=== PATIENT | male | born 1975 | race Caucasian/White ===

== ENCOUNTER 2017-02-20 16:53 | Emergency (ER) | payer OTHER ==
[~2017-02-20] VITALS: Ht 175.3 cm; Wt 94.8 kg
[~2017-02-20 16:53] MED LIST: CELEBREX 200MG200 MG PO; KLONOPIN 0.5MG0.5 MG PO; TRAMADOL 50MG T50 MG PO; VICODIN 5/500 T1 TAB PO; VOLTAREN75 MG PO; XANAX 0.5MG TA0.5 MG PO
[2017-02-20] MEDS ORDERED: IBUPROFEN800 MG PO (17:05)
--- NOTE | 2017-02-20 17:09 | Emergency Room Report ---
History of Present Illness Time Seen by [id number] Presenting Problem in Triage Pt arrived:Walked Presenting Problem:2 DAYS LIGHT HEADED AND DIZZY, HEAD TINGLING IN THE BACK, PRESSURE LIKE WEARING A TIGHT HAT. SEEN AT THE CT YESTERDAY FOR NECK PAIN. SURGERY FOR COLON CA IN 12/[address] 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 N Clinical Suspician of Infection? N Mental Status: 1 - Regular (Normal Baseline) Sepsis Risk:Low Sepsis Risk Have you (or family members/close friends) recently traveled outside the [place]? N If Yes, where/when: Have you had exposure to infectious disease within the past month? TB? Other? Specify: Comment The patient has several complaints. He says that he has had an ache in the back of his neck and his upper back to the LEFT shoulder area for about 2 weeks that feels like the soreness she gets after carrying something. He says for the past 2-3 days he has had a sensation like a tight band or hat around his head and a tingling on the top of his scalp. He says his vision has been blurry off and on. He feels like he is forgetting things. His says he is a little more hesitant in his speech than he normally is. She thought it was a little slurry this morning, but not now. He denies any numbness or weakness of the extremities. He was seen by his primary care physician at the [facility] yesterday. He had neck and back x-rays for his pain. He says he did not have any other tests. He says that they thought his other symptoms were related to his pain. He is supposed to follow-up and have a stress test and an echocardiogram next month. He was not started on any medicines. ALLERGIES Coded Allergies: No Known Allergies (02/20/17) Home Medications Reported Medications Ibuprofen (Ibuprofen 800MG) 800 MG PO TID PRN History Medical History General CAD? No Angina: No DC: No Hypertension? No Hyperlipidemia? No CHF? No COPD? No Asthma? No Anemia? No Hernia? No Thyroid Problems? No Hypothyroidism? No CVA? No Seizures? No Diabetes? No End Stage Renal Disease? No UTI? No Stones? No GB Disease: No Nephritic Syndrome? No Asplenia? No Hepatitis? No Sickle Cell Disease? No Arthritis? No Cataracts? No Glaucoma? No MRSA? No TB? No Cancer? Yes Site: COLON More? No Immunization Hx DT/Tetanus 1-4 Years Ago Surgical Hx Previous Surgery?Y COLON CA SURGERY 12/30 Social History Smoking Hx Smoker: Never Smoker Tobacco: No Alcohol Alcohol: No Review of Systems All Other Systems Reviewed and Negative Eyes blurred vision Respiratory denies shortness of breath Cardiovascular denies chest pain Psychiatric/Neurological headache, tingling, denies weakness Physical Exam Vital Signs Vital Signs Date Time Temp Pulse Resp B/P Pulse O2 O2 Flow FiO2 Ox Delivery Rate 02/20 1853 76 20 146/73 98 02/20 1834 75 20 142/79 98 02/20 1656 83 20 181/98 98 General Appearance no apparent distress Eye Exam - bilateral eye normal exam, bilateral eye PERRL, bilateral eye EOMI Ear, Nose, Throat hearing grossly normal, normal ENT inspection, tympanic membranes normal Neck normal inspection, non-tender, supple, full range of motion, negative Spurling test, no bruits Respiratory Status Yes: trachea midline, chest symmetrical. No: respiratory distress. Lung Sounds bilateral: normal breath sounds, lungs clear. 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 No Results/Orders Laboratory Tests 02/20/171714: Creatine Kinase 77, CK-MB (CK-2) Rel Index 1.0, CK and CKMB Interp 0.8, Troponin I 0.02 02/20/171714: Sodium 139, Potassium 3.5, Chloride 104, Carbon Dioxide 25, BUN 20 H, Creatinine 1.0, Estimated Creat Clear 128, Estimated GFR (MDRD) 82, Glucose 141 H, Calcium 9.6, Total Bilirubin 0.4, AST 19, ALT 48, Alkaline Phosphatase 102, Total Protein 8.0, Albumin 4.1, Globulin 3.9 H, Albumin/Globulin Ratio 1.1, WBC 7.5, RBC 5.49, Hgb 16.6, Hct 49.0, MCV 89.3, RDW 13.4, Plt Count 226, MPV 7.9, Gran % 67.9, Gran # 5.1, Lymphocytes % 24.5, Monocytes % 6.0, Eosinophils % 1.3, Basophils % 0.3, Lymphocytes # 1.8, Monocytes # 0.4, Eosinophils # 0.1, Basophils # 0.0, PUBS MCHC 33.9, MCH 30.3 Current Medication Orders Sig/Tirso Start time Last Medication Dose Route Stop Time Status Admin Sodium Chloride 10 ML PRN PRN 02/20 1715 DCD IV 02/21 1707 Orders Procedure Date/time Status DIET-NOTHING BY MOUTH 02/21 B Active CARDIAC ENZYMES 02/20 1711 Complete ELECTROCARDIOGRAM REQUEST 02/[address] HEAD REQ 02/21 1708 Complete IV SALINE LOCK 02/21 1708 Active CBC WITH AUTO DIFF 02/21 1708 Complete CHEM 12 PROFILE 02/[address] HEAD W/O CONTRAST 02/20 UNK Active CM/EKG CM/EKG Comments EKG interpreted by Albaro Eng MD: Rhythm: sinus Rate: 78 [place]: normal Ectopy: none Conduction: normal ST Segment Changes: none T Wave Changes: none Q Waves: none No evidence of acute ischemia or injury XRAY/CT/US XRAY/CT/US CT head Comment CT scan interpreted by ad radiologist. Faxed report received and reviewed: Normal head/brain CT Progress - 6:42 PM: Advised patient if need to follow-up for further workup of symptoms with his primary care physician. I do not feel that he needs to be admitted. But should follow up for carotid ultrasounds or similar workup. Advised to follow-up for his blood pressure, which is currently 141/71, and blood sugar of 147. Departure Departure Disposition DC Home or Self Care(routine) Clinical Impression Primary Impression: Paresthesias Secondary Impressions: Blood pressure elevated without history of HTN, Dizziness , Hyperglycemia Condition STABLE Patient Instructions DI for Dizziness-Nonvertigo, DI for High Blood Pressure, DI for Hyperglycemia -- Adult, DI for Numbness/tingling Additional Instructions Call your primary care physician tomorrow to arrange follow-up for your symptoms. Your blood sugar was 141, follow-up with your primary care physician. Additional instructions regarding BLOOD PRESSURE: One of your blood pressure readings was higher than normal (greater than 120/80) today. Please contact your primary care physician for further evaluation of your blood pressure within 2 wks. ED Critical Care Critical Care No at 2009
--- OUTSIDE RECORDS SUMMARY | 2017-02-20 17:16 | External Medical Summary Rpt | CCD ---
Author Author MAGO Address Unknown Phone Purpose Continuity of Care Document - through 2016
--- OUTSIDE RECORDS SUMMARY | 2017-02-20 17:16 | External Medical Summary Rpt | CCD ---
Author Author [employer] Organization [employer] Address Unknown Phone Unavailable Purpose Continuity of Care Document - through 2016
--- OUTSIDE RECORDS SUMMARY | 2017-02-20 17:17 | External Medical Summary Rpt | CCD ---
Demographics Preferred Language Faroese Marital Status Unknown Bahai Affiliation Unknown Race Unknown Ethnic Group Unknown Author Author , MAGO FORTE Address Unknown Phone Immunization Unable to retrieve immunization data due to connection failure with Immunization Registry. Please try again later.
--- OUTSIDE RECORDS SUMMARY | 2017-02-20 17:17 | External Medical Summary Rpt | CCD ---
Demographics Preferred Language Mohawk Marital Status Unknown Scientology Affiliation Unknown Race Unknown Ethnic Group Unknown Author Author , MAGO FORTE Address Unknown Phone Immunization Unable to retrieve immunization data due to connection failure with Immunization Registry. Please try again later.
[2017-02-20 17:23] LABS: HEMOGLOBIN 16.6 g/dL (14.1-18.0); LYMPH # 1.8 K/mm3 (0.7-4.5); LYMPH % 24.5 % (10-50)
[2017-02-20 18:53] VITALS: BP 146/73
--- NOTE | 2017-02-20 23:38 | RADIOLOGY REPORT PS360 ---
CT HEAD WITHOUT CONTRAST CT BONE WINDOWS included ORDERING PHYSICIAN : Albaro Eng MD PROCEDURE: Routine axial images headwithout contrast. Brain & bone windows HISTORY: TINGLING SENSATION IN THE BACK OF HIS HEAD tingling sensation back of head PATIENT AGE: 41 years GENDER: Male COMPARISON: Prior CT head 04/01/2016 FINDINGS: No acute intracranial findings. No hemorrhage. No mass effect or mass lesion. No subdural nor extra-axial collection. Ventricles & basal cisterns appear satisfactory. Warren & white matter patterns satisfactory. The posterior fossa appear satisfactory and unremarkable. The skull is intact. The visualized portions of the paranasal sinuses are clear. Mastoid air cells, middle ear & IACs are unremarkable. IMPRESSION: No acute intracranial findings. No significant change since March [address]
== END 2017-02-20 18:54 | disposition home or self-care (01) ==
LOC: ER 16:53
PROVIDERS: Emergency Medicine
DX: R20.2 Paresthesia of skin (principal); R03.0 Elevated blood-pressure reading, without diagnosis of hypertension; R42 Dizziness and giddiness